=== PATIENT | female | born 1940 | race Caucasian/White ===

== ENCOUNTER 2018-06-01 15:39 | Emergency (ER) | payer MEDICARE ==
[~2018-06-01] VITALS: Ht 170.2 cm; Wt 74.8 kg
[~2018-06-01 15:39] MED LIST: ASPIRIN81 MG ORAL; ATORVASTATIN CA20 MG ORAL; AZOR 10-40 MG1 EACH ORAL; B COMPLEX1 EACH ORAL; BIOTIN1000 MCG PO; GLYBURIDE2.5 MG PO; HYDROCHLOROTH12.5 MG ORAL; KEFLEX500 MG ORAL; METFORMIN HCL500 M1 ORAL; MULTIVITAMINS1 EAC8 ORAL; NORCO 5-325 TA1 EACH ORAL; PLAVIX75 MG ORAL; VITAMIN E400 UNI8 PO; empagliflozin PO
--- NOTE | 2018-06-01 15:52 | Emergency Room Report ---
History of Present Illness General Chief Complaint: Dizziness Source: Patient, Family Member, PMD Present Illness HPI Patient is a 77-year-old female presented after increased lightheadedness.The patient had been having increased vomiting and diarrhea for a few days. The patient denied any black or bloody stools. She denied any hematemesis. The patient stated that she had been having increased dizziness with standing. Patient prior history of hypertension. She had also had prior history of diabetes. She denies any fever. She denies any chest discomfort or current abdominal pain. The patient reports having multiple episodes of watery diarrhea. She reports having had urinated normally.The patient reportedly takes metformin as well as Jardance for diabetes. She denies any black or bloody stools. Allergies: Coded Allergies: No Known Allergies (Unverified , 09/30/14) Patient History Past Medical History: see triage record Reviewed Nursing Documentation: PMH: Agreed; PSxH: Agreed Nursing Documentation-PMH Hx Hypertension: Yes Hx Diabetes: Yes Review of Systems All Other Systems: negative except mentioned in HPI Physical Exam Sp02 EP Interpretation: reviewed, normal General Appearance: normal inspection, well appearing, no apparent distress, alert, GCS 15, non-toxic Head: atraumatic ENT: normal ENT inspection, hearing grossly normal, normal voice Neck: normal inspection, full range of motion, supple, no bony tend Respiratory: normal inspection, lungs clear, normal breath sounds, no respiratory distress, no retraction, no wheezing Cardiovascular #1: regular rate, rhythm, no edema Gastrointestinal: normal inspection, normal bowel sounds, non tender, soft, no guarding, no hernia Rectal: normal exam, normal rectal tone, heme negative stool Genitourinary: no CVA tenderness Musculoskeletal: normal inspection, back normal, normal range of motion Neurologic: normal inspection, alert, oriented x3, responsive, marble supervisor III-XII nml as tested, speech normal Psychiatric: normal inspection, judgement/insight normal, mood/affect normal Skin: normal inspection, normal color, no rash Medical Decision Making Diagnostic Impression: Primary Impression: Gastroenteritis Additional Impressions: Dehydration Abnormal blood creatinine level ER Course Patient presented for dizziness. Differential diagnoses included ischemic bowel , appendicitis, perforated viscus, abdominal aortic aneurysm, inferior myocardial infarction, viral gastroenteritis. Because of complexity of patient' s case laboratory testing and imaging studies were ordered. The EKG interpreted by me showed normal sinus rhythm with rate of [address] or T wave changes. The patient given IV fluids had the patient stated she felt better. The laboratory testing was notable for the elevated BUN/ creatinine which is likely related to patient being dehydrated. The patient will follow-up with Dr. Castillo the who agreed to recheck the patient's creatinine as well as urine. The patient will not be started on antibiotics at this time. Patient is advised to have her blood rechecked in the next few days. Patient is advised to return if any worsening condition or if any changes in status that are concerning. This report is dictated with [employer] dermatological surgeon software which may occasionally lead to discrepancies related to use of this software. Labs Test 06/01/18 16:05 06/01/18 17:00 White Blood Count 9.1 K/UL (4.8-10.8) Red Blood Count 3.76 M/UL (4.20-5.40) Hemoglobin 11.9 G/DL (12.0-16.0) Hematocrit 34.5 % (37.0-47.0) Mean Corpuscular Volume 92 FL (80-99) Mean Corpuscular Hemoglobin 31.7 PG (27.0-31.0) Mean Corpuscular Hemoglobin Concent 34.5 G/DL (32.0-36.0) Red Cell Distribution Width 12.4 % (11.6-14.8) Platelet Count 207 K/UL (150-450) Mean Platelet Volume 5.7 FL (6.5-10.1) Neutrophils (%) (Auto) 65.1 % (45.0-75.0) Lymphocytes (%) (Auto) 23.8 % (20.0-45.0) Monocytes (%) (Auto) 7.4 % (1.0-10.0) Eosinophils (%) (Auto) 2.7 % (0.0-3.0) Basophils (%) (Auto) 1.0 % (0.0-2.0) Sodium Level 140 MMOL/L (136-145) Potassium Level 4.4 MMOL/L (3.5-5.1) Chloride Level 105 MMOL/L (98-107) Carbon Dioxide Level 25 MMOL/L (21-32) Anion Gap 10 mmol/L (5-15) Blood Urea Nitrogen 56 mg/dL (7-18) Creatinine 1.6 MG/DL (0.55-1.30) Estimat Glomerular Filtration Rate mL/min (>60) Glucose Level 165 MG/DL (74-106) Calcium Level 9.2 MG/DL (8.5-10.1) Total Bilirubin 0.3 MG/DL (0.2-1.0) Aspartate Amino Transf (AST/SGOT) 24 U/L (15-37) Alanine Aminotransferase (ALT/SGPT) 38 U/L (12-78) Alkaline Phosphatase 52 U/L (46-116) Troponin I 0.011 ng/mL (0.000-0.056) Total Protein 6.4 G/DL (6.4-8.2) Albumin 3.6 G/DL (3.4-5.0) Globulin 2.8 g/dL Albumin/Globulin Ratio 1.3 (1.0-2.7) Lipase 238 U/L (73-393) Urine Color [place] Urine Appearance Slightly cloudy Urine pH 5 (4.5-8.0) Urine Specific [place] 1.030 (1.005-1.035) Urine Protein 1+ (NEGATIVE) Urine Glucose (UA) 4+ (NEGATIVE) Urine Ketones Negative (NEGATIVE) Urine Blood Negative (NEGATIVE) Urine Nitrite Negative (NEGATIVE) Urine Bilirubin Negative (NEGATIVE) Urine Ictotest Negative (NEGATIVE) Urine Urobilinogen Normal MG/DL (0.0-1.0) Urine Leukocyte Esterase 1+ (NEGATIVE) Urine RBC 0 /HPF (0 - 2) Urine WBC 10-15 /HPF (0 - 2) Urine Squamous Epithelial Cells Many /LPF (NONE/OCC) Urine Amorphous Sediment Few /LPF (NONE) Urine Bacteria Few /HPF (NONE) Status: improved Disposition: HOME, SELF-CARE Condition: Stable Wild Schmidt MD Jun 01, 2018 15:52
[2018-06-01] MEDS ORDERED: Sodium Chloride 500ML 500 ML IV ONE ×2 (15:54→18:00)
[2018-06-01 16:39] LABS: EOSINOPHILS % (AUTO) 2.7 % (0.0-3.0); HEMATOCRIT 34.5 % (37.0-47.0); HEMOGLOBIN 11.9 G/DL (12.0-16.0); LYMPHOCYTES % (AUTO) 23.8 % (20.0-45.0); MEAN CORPUSCULAR VOLUME 92 FL (80-99); MONOCYTES % (AUTO) 7.4 % (1.0-10.0); NEUTROPHILS % (AUTO) 65.1 % (45.0-75.0); PLATELET COUNT 207 K/UL (150-450); RED BLOOD COUNT 3.76 M/UL (4.20-5.40); RED CELL DISTRIBUTION WIDTH 12.4 % (11.6-14.8); WHITE BLOOD COUNT 9.1 K/UL (4.8-10.8)
[2018-06-01 16:41] VITALS: BP 111/57
[2018-06-01 17:07] LABS: ANION GAP 10 mmol/L (5-15); BLOOD UREA NITROGEN 56 mg/dL (7-18); CALCIUM 9.2 MG/DL (8.5-10.1); CARBON DIOXIDE 25 MMOL/L (21-32); CHLORIDE 105 MMOL/L (98-107); CREATININE 1.6 MG/DL (0.55-1.30); POTASSIUM 4.4 MMOL/L (3.5-5.1); SODIUM 140 MMOL/L (136-145)
[2018-06-01 17:08] LABS: APPEARANCE,URINE SLIGHTLY CLOUDY; BILIRUBIN, URINE NEGATIVE (NEGATIVE); COLOR,URINE AMBER; GLUCOSE, URINE (UA) 4+ (NEGATIVE); KETONES,URINE NEGATIVE (NEGATIVE); LEUKOCYTE ESTERASE ,URINE 1+ (NEGATIVE); NITRITE,URINE NEGATIVE (NEGATIVE); PH,URINE 5 (4.5-8.0); PROTEIN,URINE 1+ (NEGATIVE); UROBILINOGEN,URINE NORMAL MG/DL (0.0-1.0)
[2018-06-01 17:11] LABS: ALANINE AMINOTRANSFERASE 38 U/L (12-78); ALBUMIN 3.6 G/DL (3.4-5.0); ALBUMIN/GLOBULIN RATIO 1.3 (1.0-2.7); ALKALINE PHOSPHATASE 52 U/L (46-116); ASPARTATE AMINO TRANSFERASE 24 U/L (15-37); BILIRUBIN,TOTAL 0.3 MG/DL (0.2-1.0)
[2018-06-01 18:35] VITALS: BP 116/64
[2018-06-01 18:50] VITALS: BP 116/63
--- NOTE | 2018-06-09 13:41 | Cardiology Report ---
APPROVED REPORT EKG Measurement Heart [id number] Normal sinus rhythm Normal ECG
== END 2018-06-01 18:57 | disposition home or self-care (01) ==
LOC: EMR 16:10
DX: K52.9 Noninfective gastroenteritis and colitis, unspecified (principal); E86.0 Dehydration; R79.89 Other specified abnormal findings of blood chemistry; E11.9 Type 2 diabetes mellitus without complications; I10 Essential (primary) hypertension
CPT/HCPCS: 36415; 80053; 81003; 83690; 84484; 85025; 87086; 93005; 96374; 99284; J2405; J7040